=== PATIENT | male | born 1980 | race African-American/Black ===

== ENCOUNTER 2021-03-06 09:00 | Emergency (ER) | payer OTHER ==
[~2021-03-06] VITALS: Ht 188 cm; Wt 120.2 kg
[2021-03-06 09:06] VITALS: BP 130/75
[2021-03-06] MEDS ORDERED: NORCO 10-325 T1 EACH PO ×3 (09:15→09:35)
[2021-03-06] MEDS ORDERED: BACTRIM DS TAB1 EACH PO ×3 (09:15→09:35)
== END 2021-03-06 09:37 | disposition home or self-care (01) ==
LOC: ER 09:00
DX: L02.01 Cutaneous abscess of face (principal)

== ENCOUNTER → 2021-03-08 | Emergency (ER) | payer OTHER ==
[~2021-03-08] VITALS: Ht 188 cm; Wt 117.9 kg
[~2021-03-08] MED LIST: BACTRIM DS TAB1 EACH PO; NORCO 10-325 T1 EACH PO
[2021-03-08 16:14] VITALS: BP 127/66
== END ==
LOC: ER 14:23
DX: L02.01 Cutaneous abscess of face (principal)